=== PATIENT | female | born 1990 | race Caucasian/White ===

== ENCOUNTER 2022-02-13 10:53 | Observation (INO) | payer MEDICAID ==
[~2022-02-13] VITALS: Ht 157.5 cm; Wt 83.5 kg
[2022-02-13 13:11] LABS: BASOPHILS % 0.8 % (0.0-2.0); HEMATOCRIT. 33.9 % (36.0-48.0); HEMOGLOBIN. 11.6 g/dL (12.0-16.0); LYMPHOCYTES % 25.8 % (20.0-50.0); MEAN CORPUSCULAR HEMOGLOBIN 26.8 pg (28.0-32.0); MEAN CORPUSCULAR VOLUME 78.4 fL (81.0-99.0); MEAN PLATELET VOLUME 7.8 fl (7.4-10.4); MONOCYTES % 7.8 % (2.0-8.0); NEUTROPHILS % 64.6 % (40.0-76.0); PLATELET 287 x1000/uL (130-400); RED BLOOD CELL COUNT 4.32 mill/uL (4.2-5.4)
[2022-02-13 13:46] LABS: CHLORIDE 107 mEq/L (98-107)
[2022-02-13] MEDS ORDERED: URSO300C4 MT (21:12)
== END 2022-02-14 03:30 | disposition home or self-care (01) ==
LOC: 8 EST A/PP 10:53
PROVIDERS: ADMIT Obstetrics & Gynecology; ATTEND Obstetrics & Gynecology
DX: O36.8390 Maternal care for abnormalities of the fetal heart rate or rhythm, unspecified trimester, not applicable or unspecified (principal); O42.913 Preterm premature rupture of membranes, unspecified as to length of time between rupture and onset of labor, third trimester; O26.893 Other specified pregnancy related conditions, third trimester; L29.9 Pruritus, unspecified; Z3A.34 34 weeks gestation of pregnancy
CPT/HCPCS: 36415; 59025; 76705; 76805; 76818; 80053; 82239; 84550; 85025; G0378; 99281

== ENCOUNTER 2022-02-18 08:50 | Observation (INO) | payer MEDICAID ==
[~2022-02-18] VITALS: Ht 160 cm; Wt 83.9 kg
[~2022-02-18 08:50] MED LIST: URSO300C4 MT
[2022-02-18 10:46] LABS: HEMATOCRIT 31.9 % (36.0-48.0); HEMOGLOBIN 10.6 g/dL (12.0-16.0); MEAN CORPUSCULAR HEMOGLOBIN 26.4 pg (28.0-32.0); MEAN CORPUSCULAR VOLUME 79.3 fL (81.0-99.0); PLATELET 288 x1000/uL (130-400); RED BLOOD CELL COUNT 4.03 mill/uL (4.2-5.4); RED CELL DISTRIBUTION WIDTH 14.1 % (11.6-14.6)
[2022-02-18 10:59] LABS: CHLORIDE 107 mEq/L (98-107); INR 0.9; PARTIAL THROMBOPLASTIN TIME 26.6 sec (23.4-31.0); PROTHROMBIN TIME 10.1 sec (9.6-11.0)
== END 2022-02-18 12:25 | disposition home or self-care (01) ==
LOC: 8 EST A/PP 08:50
PROVIDERS: ADMIT Obstetrics & Gynecology; ATTEND Obstetrics & Gynecology
DX: O36.8930 Maternal care for other specified fetal problems, third trimester, not applicable or unspecified (principal); Z3A.35 35 weeks gestation of pregnancy; Z79.899 Other long term (current) drug therapy
CPT/HCPCS: 36415; 59025; 76815; 76818; 80053; 82239; 85027; G0378

== ENCOUNTER 2022-02-25 09:36 | Observation (INO) | payer MEDICAID ==
[~2022-02-25] VITALS: Ht 153 cm; Wt 83.5 kg
[2022-02-25 12:00] LABS: CLARITY URINE CLEAR (CLEAR); COLOR URINE YELLOW (YELLOW); KETONES URINE TRACE (NEGATIVE); LEUKOCYTE ESTERASE URINE NEGATIVE (NEGATIVE); NITRITE URINE NEGATIVE (NEGATIVE); OCCULT BLOOD URINE NEGATIVE (NEGATIVE); PH URINE 6.5 (4.5-8.0); PROTEIN URINE 1+ (NEGATIVE); SPECIFIC GRAVITY URINE 1.022 (1.005-1.030)
[2022-02-25 12:01] LABS: BASOPHILS % 0.3 % (0.0-2.0); EOSINOPHILS % 0.8 % (0.0-5.0); HEMATOCRIT. 32.9 % (36.0-48.0); HEMOGLOBIN. 11.1 g/dL (12.0-16.0); LYMPHOCYTES % 24.3 % (20.0-50.0); MEAN CORPUSCULAR HEMOGLOBIN 26.4 pg (28.0-32.0); MEAN CORPUSCULAR VOLUME 78.1 fL (81.0-99.0); MEAN PLATELET VOLUME 7.9 fl (7.4-10.4); MONOCYTES % 7.9 % (2.0-8.0); NEUTROPHILS % 66.7 % (40.0-76.0); PLATELET 267 x1000/uL (130-400); RED BLOOD CELL COUNT 4.22 mill/uL (4.2-5.4); RED CELL DISTRIBUTION WIDTH 14.1 % (11.6-14.6)
[2022-02-25 12:10] LABS: CHLORIDE 105 mEq/L (98-107)
== END 2022-02-25 13:11 | disposition home or self-care (01) ==
LOC: 8 EST A/PP 09:36
PROVIDERS: ADMIT Obstetrics & Gynecology; ATTEND Obstetrics & Gynecology
DX: Z34.93 Encounter for supervision of normal pregnancy, unspecified, third trimester (principal); Z3A.36 36 weeks gestation of pregnancy
CPT/HCPCS: 36415; 59025; 76815; 76818; 80053; 81003; 85025; G0378; 99281